=== PATIENT | female | born 1980 | race African-American/Black ===

== ENCOUNTER 2021-03-15 08:27 | Emergency (ER) | payer OTHER, MEDICAID ==
[~2021-03-15] VITALS: Ht 177.8 cm; Wt 110.7 kg
[2021-03-15] MEDS ORDERED: XARELTO2.5 MG PO (08:39)
[2021-03-15 09:32] LABS: ABSOLUTE BASOPHILS 0.1 thou/uL (0.0-0.2); ABSOLUTE EOSINOPHILS 0.3 thou/uL (0.0-0.7); ABSOLUTE LYMPHOCYTES 1.8 thou/uL (0.8-5.3); ABSOLUTE MONOCYTES 0.6 thou/uL (0.0-1.2); ABSOLUTE NEUTROPHILS 4.5 thou/uL (1.6-8.1); EOSINOPHILS 4.3 %; HEMATOCRIT 25.8 % (37.0-47.0); HEMOGLOBIN 8.2 gm/dL (12.0-15.0); LYMPHOCYTES 24.2 %; MCH 23.7 pg (26.0-34.0); MCHC 31.6 g/dL (28.0-37.0); MONOCYTES 7.8 %; MPV 7.7 fl. (7.2-11.1); NUCLEATED RBCS 0 /100WBC; PLATELET COUNT* 373 thou/uL (150-400); POLYS 62.7 %; RBC 3.44 mil/uL (4.20-5.00); RDW-CV 18.1 % (10.5-14.5); WBC 7.2 thou/uL (4.0-11.0)
[2021-03-15 09:34] LABS: CALCIUM 8.3 mg/dL (8.5-10.1); CREATININE 0.8 mg/dL (0.6-1.3); POTASSIUM 3.9 mmol/L (3.5-5.1)
[2021-03-15 09:38] LABS: ALBUMIN 3.4 g/dL (3.4-5.0); TOTAL BILIRUBIN 0.1 mg/dL (<0.1-1.0); TOTAL PROTEIN 7.4 g/dL (6.4-8.2)
[2021-03-15 12:05] LABS: HEMATOCRIT 24.9 % (37.0-47.0); HEMOGLOBIN 7.7 gm/dL (12.0-15.0); MCH 23.5 pg (26.0-34.0); MCV 75.7 fL (80.0-100.0); MPV 7.6 fl. (7.2-11.1); RBC 3.29 mil/uL (4.20-5.00); RDW-CV 18.3 % (10.5-14.5); WBC 7.5 thou/uL (4.0-11.0)
[2021-03-15 14:14] VITALS: BP 125/70
== END 2021-03-15 14:18 | disposition short-term general hospital (02) ==
LOC: M.ERS 08:27
PROVIDERS: Emergency Medicine Emergency Medical Services
DX: N93.8 Other specified abnormal uterine and vaginal bleeding (principal); Z20.822 Contact with and (suspected) exposure to COVID-19; Z88.8 Allergy status to other drugs, medicaments and biological substances